=== PATIENT | male | born 1985 | race Caucasian/White ===

== ENCOUNTER 2016-08-16 00:56 | Emergency (ER) | payer OTHER ==
--- NOTE | 2016-08-16 01:38 | ED NURSING NOTES ---
Clinical Report - Nurses [facility] [address] [place] [address] 08/16/2016 0:56 Patient: JUANA NELSON TRIAGE Triage time 0130. Acuity: LEVEL 4. Chief Complaint: COUGH. Alert. MIRLANDE COMA SCORE: [place] Coma Scale: 15- eyes open spontaneously (4); best verbal response- oriented x 4 (5); best motor response- obeys commands (6). --01:36 Zunilda Juan R.N. 01:30 08/16/16. BP: 165/87. HR: 107. RR: 18 (unlabored). O2 saturation: 100% on room air. Temp: 98.7 F (oral). Pain level now: 0/10. --01:36 Zunilda Juan R.N. Weight: 117.9 kg stated. Height/Length: 73 inches Per Patient. BMI: 34.3. --01:30 Zunilda Juan R.N. Medications None. --01:33 Zunilda Juan R.N. Medication/allergy information source: the patient. --01:36 Zunilda Juan R.N. Allergies None. --01:33 Zunilda Juan R.N. History Arrived by private vehicle. Historian: patient. Accompanied by family. Primary physician (none). ( pt c/o cough x 2 weeks and pain to ribs with coughing. hx of asthma.). Onset. (2 weeks ago). Treatment SUPERVISOR PURIFICATION: None. SOCIAL HX: Never smoker. Regular alcohol use. History of occasional drug use: marijuana. ABUSE ASSESSMENT: No report of abuse. FALL RISK ASSESSMENT: Fall risk assessment completed. No fall risk identified. NUTRITIONAL RISK ASSESSMENT: The nutritional risk assessment revealed no deficiencies. FUNCTIONAL ASSESSMENT: Functional assessment: no impairments noted. LEARNING NEEDS ASSESSMENT: The learning needs assessment revealed no barriers. SKIN INTEGRITY ASSESSMENT: Skin integrity risk assessment completed. No skin integrity risk identified. --01:36 Zunilda Juan R.N. PROBLEMS: MRSA Infection. Asthma. --01:33 Zunilda Juan R.N. ADDITIONAL SURGERIES: Appendectomy. --01:33 Zunilda Juan R.N. Interventions ID band on patient. To treatment room. --01:36 Zunilda Juan R.N. PHYSICAL ASSESSMENT Ambulatory to room. GENERAL / NEURO / PSYCH: Alert. Oriented X 4. Appears in no acute distress. HEENT: Runny nose. RESPIRATORY: Respirations not labored. Nonproductive cough. SKIN: Skin is warm and dry. --01:37 Zunilda Juan R.N. NURSING PROGRESS NOTES Patient gowned. Head of bed elevated. Two patient identifiers checked. Call light placed in reach. Side rails up x 1. Bed placed in lowest position. Brakes of bed on. Patient ready for evaluation. --01:36 Zunilda Juan R.N. 01:49 08/16/2016 Azithromycin PO Tablets 500 mg given. Allergies verified and confirmed 5 rights. --01:49 Zunilda Juan R.N. DISPOSITION / DISCHARGE Departure time: 0149. Condition at departure: unchanged. No learning barriers present. Discharge instructions provided and reviewed with the patient. Reviewed medication(s). Prescription(s) given to the patient (Azithromycin, Albuterol inhaler, spacer). Patient verbalized understanding. Written instructions provided in [place]an. The patient was discharged by the physician. He was discharged home and accompanied by parent. He left the Emergency Department ambulatory and via private vehicle. Parent driving. Medication list reviewed and validated with the patient. --01:51 Zunilda Juan R.N. 01:49 08/16/16. BP: deferred. HR: deferred. RR: deferred. O2 saturation: deferred. Temp: deferred. Pain level now deferred. --01:51 Zunilda Juan R.N. Locked/Released at 08/16/2016 1:51 by Zunilda Juan R.N.
--- NOTE | 2016-08-16 01:38 | ED NURSING NOTES ---
Clinical Report - Nurses [facility] [address] [place] [address] 08/16/2016 0:56 Patient: JUANA NELSON TRIAGE Triage time 0130. Acuity: LEVEL 4. Chief Complaint: COUGH. Alert. MIRLANDE COMA SCORE: [place] Coma Scale: 15- eyes open spontaneously (4); best verbal response- oriented x 4 (5); best motor response- obeys commands (6). --01:36 Zunilda Juan R.N. 01:30 08/16/16. BP: 165/87. HR: 107. RR: 18 (unlabored). O2 saturation: 100% on room air. Temp: 98.7 F (oral). Pain level now: 0/10. --01:36 Zunilda Juan R.N. Weight: 117.9 kg stated. Height/Length: 73 inches Per Patient. BMI: 34.3. --01:30 Zunilda Juan R.N. Medications None. --01:33 Zunilda Juan R.N. Medication/allergy information source: the patient. --01:36 Zunilda Juan R.N. Allergies None. --01:33 Zunilda Juan R.N. History Arrived by private vehicle. Historian: patient. Accompanied by family. Primary physician (none). ( pt c/o cough x 2 weeks and pain to ribs with coughing. hx of asthma.). Onset. (2 weeks ago). Treatment CONTENT COORDINATOR: None. SOCIAL HX: Never smoker. Regular alcohol use. History of occasional drug use: marijuana. ABUSE ASSESSMENT: No report of abuse. FALL RISK ASSESSMENT: Fall risk assessment completed. No fall risk identified. NUTRITIONAL RISK ASSESSMENT: The nutritional risk assessment revealed no deficiencies. FUNCTIONAL ASSESSMENT: Functional assessment: no impairments noted. LEARNING NEEDS ASSESSMENT: The learning needs assessment revealed no barriers. SKIN INTEGRITY ASSESSMENT: Skin integrity risk assessment completed. No skin integrity risk identified. --01:36 Zunilda Juan R.N. PROBLEMS: MRSA Infection. Asthma. --01:33 Zunilda Juan R.N. ADDITIONAL SURGERIES: Appendectomy. --01:33 Zunilda Juan R.N. Interventions ID band on patient. To treatment room. --01:36 Zunilda Juan R.N. PHYSICAL ASSESSMENT Ambulatory to room. GENERAL / NEURO / PSYCH: Alert. Oriented X 4. Appears in no acute distress. HEENT: Runny nose. RESPIRATORY: Respirations not labored. Nonproductive cough. SKIN: Skin is warm and dry. --01:37 Zunilda Juan R.N. NURSING PROGRESS NOTES Patient gowned. Head of bed elevated. Two patient identifiers checked. Call light placed in reach. Side rails up x 1. Bed placed in lowest position. Brakes of bed on. Patient ready for evaluation. --01:36 Zunilda Juan R.N. 01:49 08/16/2016 Azithromycin PO Tablets 500 mg given. Allergies verified and confirmed 5 rights. --01:49 Zunilda Juan R.N. DISPOSITION / DISCHARGE Departure time: 0149. Condition at departure: unchanged. No learning barriers present. Discharge instructions provided and reviewed with the patient. Reviewed medication(s). Prescription(s) given to the patient (Azithromycin, Albuterol inhaler, spacer). Patient verbalized understanding. Written instructions provided in Malaysian. The patient was discharged by the physician. He was discharged home and accompanied by parent. He left the Emergency Department ambulatory and via private vehicle. Parent driving. Medication list reviewed and validated with the patient. --01:51 Zunilda Juan R.N. 01:49 08/16/16. BP: deferred. HR: deferred. RR: deferred. O2 saturation: deferred. Temp: deferred. Pain level now deferred. --01:51 Zunilda Juan R.N. Locked/Released at 08/16/2016 1:51 by Zunilda Juan R.N.
--- NOTE | 2016-08-16 01:38 | ED ORDER SUMMARY ---
..... Patient: JUANA NELSON OrderSheet [facility] VisitID: [id number] [address] [place] [address] 31y, M Registration Date/Time: 08/16/2016 ORDER SHEET Weight: 117.9 kg (stated) Allergies: None GENERAL ORDERS: MEDICATION ORDERS: Azithromycin PO 500 mg (NOW) (01:38 08/16/2016 Eunice De Souza) (Ack 1:43 HKkaruna R.N.) (1:49 Kortney R.N.) IV FLUIDS: ORDER SHEET NOTES: [Electronically signed by Tevin Sarmiento Dr. (01:44 08/16/2016)] [Electronically signed by Zunilda Juan R.N. (01:51 08/16/2016)] [Electronically locked/signed by Zunilda Juan R.N. (01:51 08/16/2016)]
--- NOTE | 2016-08-16 01:38 | ED CLINICAL REPORT ---
Clinical Report - Physicians/Mid Levels [facility] [address] [place] [address] 08/16/2016 0:56 Patient: JUANA NELSON Arrived- By private vehicle. Historian- patient. HISTORY OF PRESENT ILLNESS Chief Complaint: COUGH. This started More than 2 weeks and is still present (staying the same). It was gradual in onset and has been waxing/waning but is not gone now. The illness is described as moderate. The patient has had sputum production, a cough, nasal congestion, fever and a nasal discharge. He has had chest discomfort (only while coughing). No muscle aches or chills. Additional history - The patient has had contact with a sick individual. No recent travel. Similar symptoms previously: None. Recent medical care: Not recently seen/assessed. REVIEW OF SYSTEMS No headache, diarrhea, abdominal pain or skin rash. All systems otherwise negative, except as recorded above. PAST HISTORY See nurses notes. SOCIAL HISTORY Never smoker. Alcohol use. Patient is a recovering alcoholic. History of occasional drug use: marijuana. No recent travel. Is a local resident. ADDITIONAL NOTES The nursing notes have been reviewed. PHYSICAL EXAM Vital Signs: 08/16/2016 01:30 BP: 165/87. HR: 107. RR: 18. O2 saturation: 100%. Temp: 98.7 F. Pain level now: 0/10. Blood pressure normal. Oxygen saturation normal. Appearance: Alert. No acute distress. Eyes: Pupils equal, round and reactive to light. Eyes normal inspection. ENT: Ears normal. Nose normal. Pharynx normal. Uvula midline. Neck: Normal inspection. Neck supple. No meningeal signs. CVS: Normal heart rate and rhythm. Heart sounds normal. Pulses normal. Respiratory: No respiratory distress. Breath sounds normal. No rales, rhonchi, wheezes, prolonged expiration or stridor. (occasional cough). Abdomen: Soft and nontender. No organomegaly. Back: Normal inspection. Skin: Skin warm and dry. Normal skin color. No rash. Normal skin turgor. Extremities: Extremities exhibit normal ROM. No lower extremity edema. PROGRESS AND PROCEDURES Course of Care: . The patient is a pleasant 31-year-old male with no pertinent past medical history presenting for evaluation of cough for greater than 2 weeks. Based on patient's evaluation and history, patient would be a candidate for antibiotics. Had discussion with patient in regards to antibiotic treatment including antibiotic resistanceof bacteria and possible allergic reaction/side effects. Patient is agreeable to the treatment plan with antibiotics. Also discussion patient in regards to chest x-ray. Did not feel chest x-ray will policy change clerk at this time. Patient will be prescribed antibodies regardless. Lungs are clear on examination. No signs of consolidation. Do not feel risk of radiation exposure outweighs the benefits of chest x-ray. Patient also reports having history of asthma. Patient states he does not have his inhaler anymore. We'll provide patient with refill of the inhaler. Patient is otherwise in no acute distress. Vital signs are otherwise unremarkable. Discussed with patient workup, diagnosis, home care, follow-up, and return precautions. All questions answered. The patient expressed understanding of these instructions and was agreeable to them. Disposition: Discharged. Condition: good. CLINICAL IMPRESSION Acute bacterial bronchitis (prolonged). hx of asthma medication refill for above diagnosis. INSTRUCTIONS Warnings: GENERAL WARNINGS: Return or contact your physician immediately if your condition worsens or changes unexpectedly, if not improving as expected, or if other problems arise. Specifically return if pain, vomiting, bleeding, breathing difficulty or fever. Your Current Medications: CONTINUE TAKING THE FOLLOWING MEDICATIONS: None*. Prescription Medications: Zithromax Z-Boaz 500 mg tablets: Take according to package instructions. No refills. Substitution is permissible. Albuterol HFA oral inhaler: inhale 1-2 puffs every 4 hours as needed for wheezing, difficulty breathing or shortness of breath. Dispense one (1) unit. No refill. Follow-up: Return to the emergency department as needed. Follow up with your doctor in three days. Reason for referral: recheck today's concerns. Summary of care provided to patient via paper. Screening today revealed the patient's blood pressure to be in the normal range. The patient should follow up with a primary care provider for blood pressure management. Understanding of the discharge instructions verbalized by patient. (Electronically signed by Tevin Sarmiento Dr. 08/16/2016 1:44)
--- NOTE | 2016-08-16 01:38 | ED CLINICAL REPORT ---
Clinical Report - Physicians/Mid Levels [facility] [address] [place] [address] 08/16/2016 0:56 Patient: JUANA NELSON Arrived- By private vehicle. Historian- patient. HISTORY OF PRESENT ILLNESS Chief Complaint: COUGH. This started More than 2 weeks and is still present (staying the same). It was gradual in onset and has been waxing/waning but is not gone now. The illness is described as moderate. The patient has had sputum production, a cough, nasal congestion, fever and a nasal discharge. He has had chest discomfort (only while coughing). No muscle aches or chills. Additional history - The patient has had contact with a sick individual. No recent travel. Similar symptoms previously: None. Recent medical care: Not recently seen/assessed. REVIEW OF SYSTEMS No headache, diarrhea, abdominal pain or skin rash. All systems otherwise negative, except as recorded above. PAST HISTORY See nurses notes. SOCIAL HISTORY Never smoker. Alcohol use. Patient is a recovering alcoholic. History of occasional drug use: marijuana. No recent travel. Is a local resident. ADDITIONAL NOTES The nursing notes have been reviewed. PHYSICAL EXAM Vital Signs: 08/16/2016 01:30 BP: 165/87. HR: 107. RR: 18. O2 saturation: 100%. Temp: 98.7 F. Pain level now: 0/10. Blood pressure normal. Oxygen saturation normal. Appearance: Alert. No acute distress. Eyes: Pupils equal, round and reactive to light. Eyes normal inspection. ENT: Ears normal. Nose normal. Pharynx normal. Uvula midline. Neck: Normal inspection. Neck supple. No meningeal signs. CVS: Normal heart rate and rhythm. Heart sounds normal. Pulses normal. Respiratory: No respiratory distress. Breath sounds normal. No rales, rhonchi, wheezes, prolonged expiration or stridor. (occasional cough). Abdomen: Soft and nontender. No organomegaly. Back: Normal inspection. Skin: Skin warm and dry. Normal skin color. No rash. Normal skin turgor. Extremities: Extremities exhibit normal ROM. No lower extremity edema. PROGRESS AND PROCEDURES Course of Care: . The patient is a pleasant 31-year-old male with no pertinent past medical history presenting for evaluation of cough for greater than 2 weeks. Based on patient's evaluation and history, patient would be a candidate for antibiotics. Had discussion with patient in regards to antibiotic treatment including antibiotic resistanceof bacteria and possible allergic reaction/side effects. Patient is agreeable to the treatment plan with antibiotics. Also discussion patient in regards to chest x-ray. Did not feel chest x-ray will management engineer at this time. Patient will be prescribed antibodies regardless. Lungs are clear on examination. No signs of consolidation. Do not feel risk of radiation exposure outweighs the benefits of chest x-ray. Patient also reports having history of asthma. Patient states he does not have his inhaler anymore. We'll provide patient with refill of the inhaler. Patient is otherwise in no acute distress. Vital signs are otherwise unremarkable. Discussed with patient workup, diagnosis, home care, follow-up, and return precautions. All questions answered. The patient expressed understanding of these instructions and was agreeable to them. Disposition: Discharged. Condition: good. CLINICAL IMPRESSION Acute bacterial bronchitis (prolonged). hx of asthma medication refill for above diagnosis. INSTRUCTIONS Warnings: GENERAL WARNINGS: Return or contact your physician immediately if your condition worsens or changes unexpectedly, if not improving as expected, or if other problems arise. Specifically return if pain, vomiting, bleeding, breathing difficulty or fever. Your Current Medications: CONTINUE TAKING THE FOLLOWING MEDICATIONS: None*. Prescription Medications: Zithromax Z-Boaz 500 mg tablets: Take according to package instructions. No refills. Substitution is permissible. Albuterol HFA oral inhaler: inhale 1-2 puffs every 4 hours as needed for wheezing, difficulty breathing or shortness of breath. Dispense one (1) unit. No refill. Follow-up: Return to the emergency department as needed. Follow up with your doctor in three days. Reason for referral: recheck today's concerns. Summary of care provided to patient via paper. Screening today revealed the patient's blood pressure to be in the normal range. The patient should follow up with a primary care provider for blood pressure management. Understanding of the discharge instructions verbalized by patient. (Electronically signed by Tevin Sarmiento Dr. 08/16/2016 1:44)
--- NOTE | 2016-08-16 01:38 | ED ORDER SUMMARY ---
..... Patient: JUANA NELSON OrderSheet [facility] VisitID: [id number] [address] [place] [address] 31y, M Registration Date/Time: 08/16/2016 ORDER SHEET Weight: 117.9 kg (stated) Allergies: None GENERAL ORDERS: MEDICATION ORDERS: Azithromycin PO 500 mg (NOW) (01:38 08/16/2016 Eunice De Souza) (Ack 1:43 HKkaruna R.N.) (1:49 Kortney R.N.) IV FLUIDS: ORDER SHEET NOTES: [Electronically signed by Tevin Sarmiento Dr. (01:44 08/16/2016)] [Electronically signed by Zunilda Juan R.N. (01:51 08/16/2016)] [Electronically locked/signed by Zunilda Juan R.N. (01:51 08/16/2016)]
--- NOTE | 2016-08-16 01:52 | ED DISCHARGE INSTRUCTIONS ---
Patient: JUANA NELSON General Instructions [facility] VisitID: [id number] [address] [place] [address] 31y, M Registration Date/Time: 08/16/2016 Acute bacterial bronchitis (prolonged). hx of asthma medication refill for above diagnosis. INSTRUCTIONS Warnings: GENERAL WARNINGS: Return or contact your physician immediately if your condition worsens or changes unexpectedly, if not improving as expected, or if other problems arise. Specifically return if pain, vomiting, bleeding, breathing difficulty or fever. Your Current Medications: CONTINUE TAKING THE FOLLOWING MEDICATIONS: None*. Prescription Medications: Zithromax Z-Boaz 500 mg tablets: Take according to package instructions. No refills. Substitution is permissible. Albuterol HFA oral inhaler: inhale 1-2 puffs every 4 hours as needed for wheezing, difficulty breathing or shortness of breath. Dispense one (1) unit. No refill. Follow-up: Return to the emergency department as needed. Follow up with your doctor in three days. Reason for referral: recheck today's concerns. Summary of care provided to patient via paper. Screening today revealed the patient's blood pressure to be in the normal range. The patient should follow up with a primary care provider for blood pressure management. Understanding of the discharge instructions verbalized by patient. ADDITIONAL INFORMATION Bronchitis (Adult: Abx Tx) BRONCHITIS is an infection of the air passages (bronchial tubes). It often occurs during the common cold. Symptoms include cough with mucus (phlegm) and low-grade fever. Bronchitis usually lasts 7-14 days. Mild cases can be treated with simple home remedies. More severe infection is treated with an antibiotic. Home Care: If symptoms are severe, rest at home for the first 2-3 days. When you resume activity, don't let yourself get too tired. Do not smoke. Avoid being exposed to the smoke of others. You may use acetaminophen (Tylenol) or ibuprofen (Motrin, Advil) to control fever or pain, unless another medicine was prescribed for this. [NOTE: If you have chronic liver or kidney disease or ever had a stomach ulcer or GI bleeding, talk with your doctor before using these medicines.] Your appetite may be poor, so a light diet is fine. Avoid dehydration by drinking 6-8 glasses of fluids per day (water, soft, drinks, juices, tea, soup, etc.). Extra fluids will help loosen secretions in the lungs. [id number]-[id number]-folregl cough medicines that containdextromethorphan(such as Robitussin DM) and decongestants (Actifed or Sudafed) may help relieve cough and congestion. [NOTE: Do not use decongestants if you have high blood pressure.] Finish all antibiotic medicine, even if you are feeling better after only a few days. Follow Up with your doctor or as directed if you dont start to feel better after three days. [NOTE: If you are age 65 or older, or if you have chronic asthma or COPD, we recommend a PNEUMOCOCCAL VACCINATION every five years and a yearly INFLUENZAVACCINATION (FLU-SHOT) every . Ask your doctor about this. If you had an X-ray, a radiologist will review it. You will be notified of any new findings that may affect your care.] Get Prompt Medical Attention if any of the following occur: Fever over 100.4F (38.0C) for more than three days Trouble breathing, wheezing or pain with breathing Coughing up blood or increased amounts of colored sputum Weakness, drowsiness, headache, facial pain, ear pain or a stiff neck Azithromycin Oral tablet What is this medicine? AZITHROMYCIN (az ith nick MYE sin) is a macrolide antibiotic. It is used to treat or prevent certain kinds of bacterial infections. It will not work for colds, flu, or other viral infections. How should I use this medicine? Take this medicine by mouth with a full glass of water. Follow the directions on the prescription label. The tablets can be taken with food or on an empty stomach. If the medicine upsets your stomach, take it with food. Take your medicine at regular intervals. Do not take your medicine more often than directed. Take all of your medicine as directed even if you think your are better. Do not skip doses or stop your medicine early. Talk to your magnetic grinder operator regarding the use of this medicine in children. Special care may be needed. What side effects may I notice from receiving this medicine? Side effects that you should report to your doctor or health child day care teacher as soon as possible: allergic reactions like skin rash, itching or hives, swelling of the face, lips, or tongue confusion, nightmares or hallucinations dark urine difficulty breathing hearing loss irregular heartbeat or chest pain pain or difficulty passing urine redness, blistering, peeling or loosening of the skin, including inside the mouth white patches or sores in the mouth yellowing of the eyes or skin Side effects that usually do not require medical attention (report to your doctor or health child day care teacher if they continue or are bothersome): diarrhea dizziness, drowsiness headache stomach upset or vomiting tooth discoloration vaginal irritation What may interact with this medicine? Do not take this medicine with any of the following medications: lincomycin This medicine may also interact with the following medications: amiodarone antacids cyclosporine digoxin magnesium nelfinavir phenytoin warfarin What if I miss a dose? If you miss a dose, take it as soon as you can. If it is almost time for your next dose, take only that dose. Do not take double or extra doses. Where should I keep my medicine? Keep out of the reach of children. Store at room temperature between 15 and 30 degrees C (59 and 86 degrees F). Throw away any unused medicine after the expiration date. What should I tell my health care provider before I take this medicine? They need to know if you have any of these conditions: kidney disease liver disease irregular heartbeat or heart disease an unusual or allergic reaction to azithromycin, erythromycin, other macrolide antibiotics, foods, dyes, or preservatives or trying to get breast-feeding What should I watch for while using this medicine? Tell your doctor or health child day care teacher if your symptoms do not improve. Do not treat diarrhea with over the counter products. Contact your doctor if you have diarrhea that lasts more than 2 days or if it is severe and watery. This medicine can make you more sensitive to the sun. Keep out of the sun. If you cannot avoid being in the sun, wear protective clothing and use sunscreen. Do not use sun lamps or tanning beds/booths. Albuterol Sulfate Pressurized inhalation, suspension What is this medicine? ALBUTEROL (al BYOO ter ole) is a bronchodilator. It helps open up the airways in your lungs to make it easier to breathe. This medicine is used to treat and to prevent bronchospasm. How should I use this medicine? This medicine is for inhalation through the mouth. Follow the directions on your prescription label. Take your medicine at regular intervals. Do not use more often than directed. Make sure that you are using your inhaler correctly. Ask you doctor or health care provider if you have any questions. Talk to your magnetic grinder operator regarding the use of this medicine in children. Special care may be needed. What side effects may I notice from receiving this medicine? Side effects that you should report to your doctor or health child day care teacher as soon as possible: allergic reactions like skin rash, itching or hives, swelling of the face, lips, or tongue breathing problems chest pain feeling faint or lightheaded, falls high blood pressure irregular heartbeat fever muscle cramps or weakness pain, tingling, numbness in the hands or feet vomiting Side effects that usually do not require medical attention (report to your doctor or health child day care teacher if they continue or are bothersome): cough difficulty sleeping headache nervousness or trembling stomach upset stuffy or runny nose throat irritation unusual taste What may interact with this medicine? anti-infectives like chloroquine and pentamidine caffeine cisapride diuretics medicines for colds medicines for depression or for emotional or psychotic conditions medicines for weight loss including some herbal products methadone some antibiotics like clarithromycin, erythromycin, levofloxacin, and linezolid some heart medicines steroid hormones like dexamethasone, cortisone, hydrocortisone theophylline thyroid hormones What if I miss a dose? If you miss a dose, use it as soon as you can. If it is almost time for your next dose, use only that dose. Do not use double or extra doses. Where should I keep my medicine? Keep out of the reach of children. Store at room temperature between 15 and 30 degrees C (59 and 86 degrees F). The contents are under pressure and may burst when exposed to heat or flame. Do not freeze. This medicine does not work as well if it is too cold. Throw away any unused medicine after the expiration date. Inhalers need to be thrown away after the labeled number of puffs have been used or by the expiration date; whichever comes first. Ventolin HFA should be thrown away 12 months after removing from foil pouch. Check the instructions that come with your medicine. What should I tell my health care provider before I take this medicine? They need to know if you have any of the following conditions: diabetes heart disease or irregular heartbeat high blood pressure pheochromocytoma seizures thyroid disease an unusual or allergic reaction to albuterol, levalbuterol, sulfites, other medicines, foods, dyes, or preservatives or trying to get breast-feeding What should I watch for while using this medicine? Tell your doctor or health child day care teacher if your symptoms do not improve. Do not use extra albuterol. If your asthma or bronchitis gets worse while you are using this medicine, call your doctor right away. If your mouth gets dry try chewing sugarless gum or sucking hard candy. Drink water as directed. You have been given the following additional information: Bronchitis, Antiobiotic Treatment (Adult) Azithromycin Oral tablet Albuterol Sulfate Pressurized inhalation, suspension (Electronically signed by Tevin Sarmiento Dr. 08/16/2016 1:44)
--- NOTE | 2016-08-16 01:52 | ED MAR SUMMARY ---
..... Medication Administration Record [facility] [address] [place] [address] Patient: JUANA NELSON Visit ID: [id number] 31y, M Weight: 117.9 kg Height/Length: 73 in BMI: 34.3 ALLERGIES: None Given 01:49 08/16/2016 Zunilda Juan R.N. Medication Administered: AZITHROMYCIN [PO], Dose: 500 mg Tablets PO. Medication Ordered: Azithromycin PO 500 mg (NOW).
--- NOTE | 2016-08-16 01:52 | ED MAR SUMMARY ---
..... Medication Administration Record [facility] [address] [place] [address] Patient: JUANA NELSON Visit ID: [id number] 31y, M Weight: 117.9 kg Height/Length: 73 in BMI: 34.3 ALLERGIES: None Given 01:49 08/16/2016 Zunilda Juan R.N. Medication Administered: AZITHROMYCIN [PO], Dose: 500 mg Tablets PO. Medication Ordered: Azithromycin PO 500 mg (NOW).
--- NOTE | 2016-08-16 01:52 | ED MED RECONCILIATION SUMMARY ---
Patient: JUANA NELSON Medication Reconciliation Report [facility] VisitID: [id number] [address] [place] [address] 31y, M Registration Date/Time: 08/16/2016 Weight: 117.9 kg Height/Length: 73 in. BMI: 34.3 ALLERGIES: None The patient's Home Medications are listed below: NONE. The source(s) of the original Home Medication information: patient The following Medications were given to the patient in the Emergency Department: Azithromycin [PO] PO 500 mg, administered: 08/16/2016 1:49:00 AM The following Medications were prescribed to the patient: Zithromax Z-Boaz 500 mg tablets: Take according to package instructions. No refills. Substitution is permissible. -- Tevin Sarmiento Dr. Albuterol HFA oral inhaler: inhale 1-2 puffs every 4 hours as needed for wheezing, difficulty breathing or shortness of breath. Dispense one (1) unit. No refill. -- Tevin Sarmiento Dr.
--- NOTE | 2016-08-16 01:52 | ED MED RECONCILIATION SUMMARY ---
Patient: JUANA NELSON Medication Reconciliation Report [facility] VisitID: [id number] [address] [place] [address] 31y, M Registration Date/Time: 08/16/2016 Weight: 117.9 kg Height/Length: 73 in. BMI: 34.3 ALLERGIES: None The patient's Home Medications are listed below: NONE. The source(s) of the original Home Medication information: patient The following Medications were given to the patient in the Emergency Department: Azithromycin [PO] PO 500 mg, administered: 08/16/2016 1:49:00 AM The following Medications were prescribed to the patient: Zithromax Z-Boaz 500 mg tablets: Take according to package instructions. No refills. Substitution is permissible. -- Tevin Sarmiento Dr. Albuterol HFA oral inhaler: inhale 1-2 puffs every 4 hours as needed for wheezing, difficulty breathing or shortness of breath. Dispense one (1) unit. No refill. -- Tevin Sarmiento Dr.
== END 2016-08-16 01:49 | disposition home or self-care (01) ==
LOC: ED SRH 00:56
DX: J20.9 Acute bronchitis, unspecified (principal); B96.89 Other specified bacterial agents as the cause of diseases classified elsewhere; Z76.0 Encounter for issue of repeat prescription; Z87.09 Personal history of other diseases of the respiratory system